=== PATIENT | male | born 2000 | race Caucasian/White ===

== ENCOUNTER 2021-11-25 20:56 | Emergency (ER) | payer MEDICAID ==
[~2021-11-25] VITALS: Ht 170.2 cm; Wt 86.2 kg
--- NOTE | 2021-11-25 21:25 | ED Lower Extremity ---
General Stated Complaint: L KNEE SWOLLEN/PAIN Source: patient Exam Limitations: no limitations History of Present Illness Date Seen by Provider: Nov 25, 2021 Allergies and Home Medications Allergies Coded Allergies: No Known Drug Allergies (Unverified , 11/25/21) Physical Exam Vital Signs Vital Signs - First Documented 11/25/21 21:12 Temp 37.1 Pulse 68 Resp 18 B/P (MAP) 132/78 (96) Pulse Ox 98 O2 Delivery Room Air Capillary Refill : Height, Weight, BMI Height: '" Weight: lbs. oz. kg; BMI Method: Progress/Results/Core Measures Results/Orders My Orders Orders - [employer] Knee, Left, 3 Views (11/25/21 21:24) Vital Signs/I&O 11/25/21 11/25/21 21:12 22:20 Temp 37.1 37.1 Pulse 68 65 Resp 18 16 B/P (MAP) 132/78 (96) 130/75 Pulse Ox 98 98 O2 Delivery Room Air Room Air Progress Progress Note : Progress Note Patient examined and in no acute distress. GCS 15. Has moderated swelling of knee joint, pain just below patella. Based on mechanism, swelling, and pain, concern for ACL injury. His x-ray of left knee is negative for acute fractures. Has large joint effusion. Neurovascular intact distal to injury. Placed in knee immobilizer and provided crutches. Will plan to follow up with with [facility] to obtain referral for Dr. Paiz, orthopedic surgeon. Discharge POC reviewed and he is agreeable with plan. Departure Impression Primary Impression: Knee effusion, left Additional Impression: Injury of ligament of left knee Disposition: HOME, SELF-CARE Condition: Improved Departure-Patient Inst. Decision time for Depature: 22:06 Referrals: [employer] [facility] (PCP/Family) Primary Care Physician Patient Instructions: Knee Brace ED Add. Discharge Instructions: Plan: 1. Follow up with [facility] later this week. 2. Use knee brace for stability and crutches with minimal weight bearing. 3. Use ice 20 minutes at a time followed by moist heat for 20 minutes. 4. Use Ibuprofen for swelling, this will help with inflammation even if it does not help with pain 5. Avoid Rugby and strenous activities for the next few weeks until your swelling has resolved. 6. You may need follow up with ortho, please follow up with [facility] for any persistent symptoms. 7. Return to ER for any new, concerning, or worsening symptoms. [employer] Nov 25, 2021 21:25
--- NOTE | 2021-11-25 21:44 | Diagnostic Imaging Report ---
INDICATION: Left knee pain post injury AP, oblique, and lateral views of left knee are obtained No acute fracture or acute bone abnormality is seen. There is a large joint effusion in the suprapatellar recess. IMPRESSION: No acute fracture. Large joint effusion in the suprapatellar recess. Dictated by: Dictated on workstation # [id number]
[2021-11-25 22:20] VITALS: BP 130/75
== END 2021-11-25 22:20 | disposition home or self-care (01) ==
LOC: ER 20:59
DX: S89.92XA Unspecified injury of left lower leg, initial encounter (principal); M25.462 Effusion, left knee; Z28.310 Unvaccinated for COVID-19; X58.XXXA Exposure to other specified factors, initial encounter
CPT/HCPCS: 73562; 99283; L1830